=== PATIENT | female | born 1975 | race Caucasian/White ===

== ENCOUNTER → 2021-10-24 | Outpatient (CLI) | payer MEDICAID, OTHER ==
--- NOTE | 2021-10-24 16:05 | KCIC ---
US PELVIS W/TV History: Reason: DUB, EXCESSIVE CRAMPING / Spl. Instructions: / History: Comparison: None Technique: Grayscale and color Doppler imaging of the pelvis was performed using transabdominal and t ransvaginal technique. Findings: The uterus measures 10.0 x 5.9 x 4.6 cm. Nabothian cysts noted. The endometrial stripe measures 13 mm. Right ovary measures 3.0 x 2.5 x 2.5 cm. Dominant right ovarian follicle measures 1.8 cm. Left ovary measures 2.5 x 2.6 x 1.7 cm. Dominant left ovarian follicle measures 1.2 cm. Normal Doppler flow to the ovaries. No adnexal masses are seen. IMPRESSION: 1. No ultrasound evidence of acute pelvic pathology. Electronically signed by: Herb Plunkett DO (10/24/2021 4:02 PM) [id number]
== END ==
LOC: KCIC US 12:31
PROVIDERS: ATTEND Family Medicine
DX: N83.02 Follicular cyst of left ovary (principal); N83.01 Follicular cyst of right ovary; N93.8 Other specified abnormal uterine and vaginal bleeding; N88.8 Other specified noninflammatory disorders of cervix uteri
CPT/HCPCS: 76830; 76856